=== PATIENT | male | born 1980 | race Caucasian/White ===

== ENCOUNTER 2021-01-08 15:17 | Emergency (ER) | payer OTHER | END 2021-01-08 15:58 | disposition home or self-care (01) | LOC: BURERS 15:17 | DX: S93.401A Sprain of unspecified ligament of right ankle, initial encounter (principal); X58.XXXA Exposure to other specified factors, initial encounter ==

== ENCOUNTER 2021-10-17 07:40 | Emergency (ER) | payer OTHER ==
[2021-10-17] MEDS ORDERED: Tetracaine 0.5% PF 4 ML BOT ONE (07:48)
[2021-10-17] MEDS ORDERED: Fluorescein Opthalmic Strip ONE (07:48)
[2021-10-17] MEDS ORDERED: Neomycin-Polymyxin-Hc 7.5 ML BOT ONE (08:41)
== END 2021-10-17 08:51 | disposition home or self-care (01) ==
LOC: BURERS 07:40
DX: T15.12XA Foreign body in conjunctival sac, left eye, initial encounter (principal); X58.XXXA Exposure to other specified factors, initial encounter
CPT/HCPCS: 67938

== ENCOUNTER 2021-10-18 10:02 | Emergency (ER) | payer OTHER ==
[2021-10-18] MEDS ORDERED: Tetracaine 0.5% PF 4 ML BOT ONE (10:17)
[2021-10-18] MEDS ORDERED: Fluorescein Opthalmic Strip ONE (10:17)
== END 2021-10-18 10:44 | disposition home or self-care (01) ==
LOC: BURERS 10:02
DX: T15.02XA Foreign body in cornea, left eye, initial encounter (principal)
CPT/HCPCS: 65222